=== PATIENT | female | born 1995 | race Two or more races ===

== ENCOUNTER 2016-10-11 12:29 | Emergency (ER) | payer SELFPAY ==
[~2016-10-11] VITALS: Ht 154.9 cm; Wt 39.0 kg
[2016-10-11 13:36] VITALS: BP 115/74
== END 2016-10-11 13:36 | disposition home or self-care (01) ==
LOC: ER 12:30
DX: S50.11XA Contusion of right forearm, initial encounter (principal); V43.52XA Car driver injured in collision with other type car in traffic accident, initial encounter; Y93.I9 Activity, other involving external motion; Y92.410 Unspecified street and highway as the place of occurrence of the external cause; Y99.8 Other external cause status